=== PATIENT | male | born 1965 | race Two or more races ===

== ENCOUNTER 2025-06-29 10:18 | Emergency (ER) | payer OTHER ==
[~2025-06-29] VITALS: Ht 182.9 cm; Wt 97.5 kg
[2025-06-29] MEDS ORDERED: TOPROL XL50 M1 (11:00)
[2025-06-29] MEDS ORDERED: ORPHENADRINE CITRATE 30 MG/ML AMPUL IM ONE (11:15)
[2025-06-29] MEDS ORDERED: KETOROLAC TROMETHAMINE 60 MG VIAL IM ONE (11:15)
== END 2025-06-29 12:23 | disposition home or self-care (01) ==
LOC: ER 10:18
DX: M25.59 Pain in other specified joint (principal); M54.50 Low back pain, unspecified; I10 Essential (primary) hypertension

== ENCOUNTER 2025-07-12 08:36 | Emergency (ER) | payer OTHER ==
[~2025-07-12] VITALS: Ht 182.9 cm; Wt 88.5 kg
[~2025-07-12 08:36] MED LIST: TOPROL XL50 M1
[2025-07-12] MEDS ORDERED: 0.9 % SODIUM CHLORIDE 500 ML IV SCH (10:00)
[2025-07-12] MEDS ORDERED: MORPHINE SULFATE 4 MG/ML CARTRIDGE IV ONE (10:00)
== END 2025-07-12 12:04 | disposition home or self-care (01) ==
LOC: ER 08:37
DX: M54.6 Pain in thoracic spine (principal); C34.90 Malignant neoplasm of unspecified part of unspecified bronchus or lung